=== PATIENT | male | born 1995 | race Two or more races ===

== ENCOUNTER 2020-01-23 23:50 | Inpatient (IN) | payer MEDICAID, OTHER ==
[~2020-01-23] VITALS: Ht 172.7 cm; Wt 60.0 kg
[2020-01-24 01:08] LABS: BASOPHILS % (AUTO) 0.7 % (0.0-2.0); EOSINOPHILS % (AUTO) 0.5 % (1.0-6.0); HEMATOCRIT 35.9 % (41-53); HEMOGLOBIN 12.3 g/dL (13.5-17.5); LYMPHOCYTES # (AUTO) 2.1 K/uL (1.0-4.8); MEAN CORPUSCULAR HEMOGLOBIN 32.9 pg (26.0-34.0); MEAN CORPUSCULAR HGB CONC 34.3 G/dL (31.0-37.0); MEAN CORPUSCULAR VOLUME 96 fL (80-100); MONOCYTES # (AUTO) 0.4 K/uL (0.1-1.0); MONOCYTES % (AUTO) 8.2 % (2.0-9.0); NEUTROPHILS # (AUTO) 2.3 K/uL (1.8-7.7); NEUTROPHILS % (AUTO) 47.6 % (40.0-70.0); PLATELET COUNT (AUTO) 136 K/uL (150-450); RED BLOOD CELL COUNT(AUTO) 3.74 MIL/uL (4.50-5.90); RED CELL DISTRIBUTION WIDTH 14.2 % (11.5-14.5)
[2020-01-24 01:11] LABS: AMPHET/METH SCREEN,URINE NEGATIVE (NEGATIVE); BARBITURATE SCREEN, URINE NEGATIVE (NEGATIVE); BENZODIAZEPINES SCREEN,URINE NEGATIVE (NEGATIVE); CANNABINOID SCREEN,URINE POSITIVE (NEGATIVE); COCAINE SCREEN,URINE NEGATIVE (NEGATIVE); METHADONE SCREEN, URINE NEGATIVE (NEGATIVE); OPIATE SCREEN,URINE NEGATIVE (NEGATIVE)
[2020-01-24 01:12] LABS: ANION GAP 8 mmol/L (8-16); CALCIUM, TOTAL 8.9 mg/dL (8.8-10.5); CARBON DIOXIDE 29 mmol/L (22-29); CHLORIDE 105 mmol/L (98-107); CREATININE 1.06 mg/dL (0.60-1.30); GLOMERULAR FILTR. RATE CALC > 60 mL/min (>60); GLUCOSE,RANDOM 77 mg/dL (70-110); POTASSIUM 3.8 mmol/L (3.5-5.1); SODIUM SERUM 142 mmol/L (136-145); UREA NITROGEN, BLOOD 7 mg/dL (7-18)
[2020-01-24 01:15] LABS: PHENCYCLIDINE SCREEN,URINE NEGATIVE (NEGATIVE)
[2020-01-24] MEDS ORDERED: ZOLPIDEM TARTRATE 10 MG TABLET PO PRN (01:15)
[2020-01-24] MEDS ORDERED: OLANZapine 5 MG RAPDIS TABLET PO PRN (01:15)
[2020-01-24] MEDS ORDERED: LORazepam 2 MG TABLET PO PRN (01:15)
[2020-01-24 01:17] LABS: ALANINE AMINOTRANSFERASE 22 U/L (12-78); ALBUMIN 3.9 g/dL (3.4-5.0); ALKALINE PHOSPHATASE 63 U/L (46-116); ASPARTATE AMINOTRANSFERASE 20 U/L (15-37); BILIRUBIN,TOTAL 0.2 mg/dL (0.1-1.0); TOTAL PROTEIN, SERUM 7.4 g/dL (6.4-8.2)
[2020-01-24 03:12] LABS: APPEARANCE,URINE CLEAR (CLEAR); BILIRUBIN,URINE NEGATIVE (NEGATIVE); GLUCOSE, URINE (UA) NEGATIVE (NEGATIVE); KETONES,URINE NEGATIVE (NEGATIVE); LEUKOCYTE ESTERASE ,URINE NEGATIVE (NEGATIVE); NITRATE,URINE NEGATIVE (NEGATIVE); OCCULT BLOOD,URINE NEGATIVE (NEGATIVE); PH,URINE 5.5 (5.0-8.0); PROTEIN,URINE TRACE (NEGATIVE); UROBILINOGEN,URINE 0.2 mg/dL (<=1.0)
[2020-01-24 12:35] VITALS: BP 133/77
[2020-01-24] MEDS ORDERED: ACETAMINOPHEN 325 MG TABLET PO PRN (15:45)
[2020-01-24] MEDS ORDERED: HydrOXYzine PAMOATE 50 MG CAPSULE PO PRN (15:45)
[2020-01-24] MEDS ORDERED: GuaiFENesin/D-METHORPHAN [SUGAR-FREE] 200-20MG/10 ML SYRUP UDCUP PO PRN (15:45)
[2020-01-24] MEDS ORDERED: MAGNESIUM HYDROXIDE SUSPENSION 30 ML UDCUP PO PRN (15:45)
[2020-01-24] MEDS ORDERED: LOPERAMIDE HCL 2 MG CAPSULE PO PRN (15:45)
[2020-01-24] MEDS ORDERED: PROMETHAZINE HCL 25 MG TABLET PO PRN (15:45)
[2020-01-24] MEDS ORDERED: MAG HYDROX/AL HYDROX/SIMETH ES 30 ML SUSPENSION UDCUP PO PRN (15:45)
[2020-01-24] MEDS ORDERED: TUBERCULIN, PURIFIED PROTEIN DERIVATIVE 5 TU/0.1 ML SYRINGE ID ONE (15:45)
[2020-01-24 16:46] VITALS: BP 138/69
[2020-01-24] MEDS: BACITRACIN 28.4 GM OINTMENT TP SCH (17:09)
[2020-01-24] MEDS: THIAMINE 100 MG TABLET PO SCH (17:09)
[2020-01-24] MEDS: OLANZapine 5 MG RAPDIS TABLET PO SCH (21:00)
[2020-01-25 06:22] VITALS: BP 123/88
[2020-01-25 08:30] VITALS: BP 115/72
[2020-01-25 08:40] LABS: CHOL/HDL RATIO 2.2 (4.2-7.3)
[2020-01-25] MEDS: MULTIVITAMINS WITH MINERALS, THERAPEUTIC TABLET PO SCH (08:48)
[2020-01-25] MEDS: FOLIC ACID 1 MG TABLET PO SCH (08:48)
[2020-01-25] MEDS: THIAMINE 100 MG TABLET PO SCH ×2 (08:48→17:06)
[2020-01-25] MEDS: NALTREXONE HCL 50 MG TABLET PO SCH (08:49)
[2020-01-25] MEDS: FLUoxetine HCL 20 MG CAPSULE PO SCH (08:49)
[2020-01-25] MEDS: BACITRACIN 28.4 GM OINTMENT TP SCH ×2 (08:50→17:06)
[2020-01-25 16:00] VITALS: BP 137/67
[2020-01-25] MEDS: OLANZapine 5 MG RAPDIS TABLET PO SCH ×2 (20:08→21:00)
[2020-01-26 04:10] VITALS: BP 111/77
[2020-01-26 08:47] VITALS: BP 121/78
[2020-01-26] MEDS: FLUoxetine HCL 20 MG CAPSULE PO SCH (09:05)
[2020-01-26] MEDS: FOLIC ACID 1 MG TABLET PO SCH (09:05)
[2020-01-26] MEDS: BACITRACIN 28.4 GM OINTMENT TP SCH ×2 (09:05→16:50)
[2020-01-26] MEDS: NALTREXONE HCL 50 MG TABLET PO SCH (09:05)
[2020-01-26] MEDS: THIAMINE 100 MG TABLET PO SCH ×2 (09:05→16:50)
[2020-01-26] MEDS: MULTIVITAMINS WITH MINERALS, THERAPEUTIC TABLET PO SCH (09:05)
[2020-01-26 16:37] VITALS: BP 130/64
[2020-01-26] MEDS: OLANZapine 5 MG RAPDIS TABLET PO SCH (20:11)
[2020-01-27 05:53] VITALS: BP 116/71
[2020-01-27 08:28] VITALS: BP 121/66
[2020-01-27] MEDS: BACITRACIN 28.4 GM OINTMENT TP SCH (09:00)
[2020-01-27] MEDS: FLUoxetine HCL 20 MG CAPSULE PO SCH (09:43)
[2020-01-27] MEDS: FOLIC ACID 1 MG TABLET PO SCH (09:43)
[2020-01-27] MEDS: THIAMINE 100 MG TABLET PO SCH (09:43)
[2020-01-27] MEDS: NALTREXONE HCL 50 MG TABLET PO SCH (09:43)
[2020-01-27] MEDS: MULTIVITAMINS WITH MINERALS, THERAPEUTIC TABLET PO SCH (09:43)
[2020-01-27] MEDS ORDERED: FLUO-191 PO (13:33)
[2020-01-27] MEDS ORDERED: NALT50TA PO (13:33)
== END 2020-01-27 14:50 | disposition home or self-care (01) | DRG 885 ==
LOC: EMS 23:52 → B3A 01-24 01:11 → UNDOADMIN 01-24 10:13 → B3A 01-24 10:13
PROVIDERS: ADMIT Psychiatry & Neurology Psychiatry; ATTEND Psychiatry & Neurology Psychiatry
DX: F32.3 Major depressive disorder, single episode, severe with psychotic features (principal); R45.851 Suicidal ideations; F10.10 Alcohol abuse, uncomplicated; S60.511A Abrasion of right hand, initial encounter; F12.90 Cannabis use, unspecified, uncomplicated; Y90.6 Blood alcohol level of 120-199 mg/100 ml; Z91.19 Patient's noncompliance with other medical treatment and regimen; Z63.9 Problem related to primary support group, unspecified
CPT/HCPCS: G0480

== ENCOUNTER 2021-02-03 05:34 | Inpatient (IN) | payer MEDICAID ==
[~2021-02-03] VITALS: Ht 177.8 cm; Wt 69.0 kg
[~2021-02-03 05:34] MED LIST: FLUO-191 PO; NALT50TA PO
[2021-02-03] MEDS ORDERED: HALOPERIDOL 5 MG TABLET PO PRN (10:00)
[2021-02-03 16:27] VITALS: BP 106/70
[2021-02-04 05:22] VITALS: BP 143/84
[2021-02-04 08:30] VITALS: BP 126/80
[2021-02-04 08:33] VITALS: BP 139/92
[2021-02-04] MEDS: FLUoxetine HCL 20 MG CAPSULE PO SCH (11:42)
[2021-02-04] MEDS: OLANZapine 5 MG TABLET PO SCH ×2 (11:42→16:37)
[2021-02-04 16:29] VITALS: BP 142/88
[2021-02-04] MEDS: LORazepam 2 MG TABLET PO PRN (16:37)
[2021-02-04] MEDS ORDERED: GuaiFENesin/D-METHORPHAN [SUGAR-FREE] 200-20MG/10 ML SYRUP UDCUP PO PRN (17:30)
[2021-02-04] MEDS ORDERED: PETROLATUM,WHITE 28 GM JELLY TP PRN (17:30)
[2021-02-04] MEDS ORDERED: IBUPROFEN 400 MG TABLET PO PRN (17:30)
[2021-02-04] MEDS ORDERED: ALBUTEROL SULFATE HFA 90 MCG/PUFF 8 GM INHALER IH PRN (17:30)
[2021-02-04] MEDS ORDERED: MAG HYDROX/AL HYDROX/SIMETH ES 30 ML SUSPENSION UDCUP PO PRN (17:30)
[2021-02-04] MEDS ORDERED: LOPERAMIDE HCL 2 MG CAPSULE PO PRN (17:30)
[2021-02-04] MEDS ORDERED: CloNIDine HCL 0.1 MG TABLET PO PRN (17:30)
[2021-02-04] MEDS ORDERED: MAGNESIUM HYDROXIDE SUSPENSION 30 ML UDCUP PO PRN (17:30)
[2021-02-04] MEDS ORDERED: ONDANSETRON HCL 4 MG TABLET PO PRN (17:30)
[2021-02-04] MEDS ORDERED: DOCUSATE SODIUM 100 MG CAPSULE PO PRN (17:30)
[2021-02-04] MEDS ORDERED: NICOTINE 14 MG/24 HOUR PATCH TD PRN (17:30)
[2021-02-04] MEDS ORDERED: ACETAMINOPHEN 325 MG TABLET PO PRN (17:30)
[2021-02-04] MEDS: ZOLPIDEM TARTRATE 10 MG TABLET PO PRN (20:24)
[2021-02-05 04:36] VITALS: BP 128/82
[2021-02-05] MEDS: LORazepam 2 MG TABLET PO PRN ×2 (08:25→16:19)
[2021-02-05 08:26] VITALS: BP 161/75
[2021-02-05] MEDS: OLANZapine 5 MG TABLET PO SCH ×2 (09:04→16:19)
[2021-02-05] MEDS: FLUoxetine HCL 20 MG CAPSULE PO SCH (09:04)
[2021-02-05 16:23] VITALS: BP 130/89
[2021-02-06 02:06] VITALS: BP 123/82
[2021-02-06] MEDS: FLUoxetine HCL 20 MG CAPSULE PO SCH (09:00)
[2021-02-06] MEDS: OLANZapine 5 MG TABLET PO SCH ×2 (09:00→17:36)
[2021-02-06] MEDS ORDERED: NICOTINE 21 MG/24 HOUR PATCH TD SCH (09:45)
[2021-02-06] MEDS ORDERED: NICOTINE 14 MG/24 HOUR PATCH TD PRN (10:00)
[2021-02-06 10:34] VITALS: BP 138/74
[2021-02-06 16:20] VITALS: BP 118/71
[2021-02-06] MEDS: LORazepam 2 MG TABLET PO PRN (17:36)
[2021-02-06] MEDS: ZOLPIDEM TARTRATE 10 MG TABLET PO PRN (20:41)
[2021-02-07 00:19] VITALS: BP 110/68
[2021-02-07] MEDS: LORazepam 2 MG TABLET PO PRN (08:15)
[2021-02-07] MEDS: OLANZapine 5 MG TABLET PO SCH ×2 (08:37→16:52)
[2021-02-07] MEDS: FLUoxetine HCL 20 MG CAPSULE PO SCH (08:37)
[2021-02-07 08:43] VITALS: BP 149/79
[2021-02-07 16:35] VITALS: BP 130/83
[2021-02-07] MEDS: ZOLPIDEM TARTRATE 10 MG TABLET PO PRN (20:30)
[2021-02-08 05:53] VITALS: BP 132/81
[2021-02-08] MEDS: LORazepam 2 MG TABLET PO PRN (08:10)
[2021-02-08] MEDS: FLUoxetine HCL 20 MG CAPSULE PO SCH (08:28)
[2021-02-08] MEDS: OLANZapine 5 MG TABLET PO SCH (08:28)
[2021-02-08 09:47] VITALS: BP 126/84
[2021-02-08] MEDS ORDERED: OLAN5TAB52 PO (11:32)
== END 2021-02-08 11:45 | disposition home or self-care (01) | DRG 750 ==
LOC: B3A 11:39
PROVIDERS: ADMIT Psychiatry & Neurology Child & Adolescent Psychiatry; ATTEND Psychiatry & Neurology Child & Adolescent Psychiatry
DX: F25.1 Schizoaffective disorder, depressive type (principal); F10.10 Alcohol abuse, uncomplicated; Z20.822 Contact with and (suspected) exposure to COVID-19; R00.0 Tachycardia, unspecified; R03.0 Elevated blood-pressure reading, without diagnosis of hypertension
CPT/HCPCS: Z7610